=== PATIENT | female | born 1995 | race African-American/Black ===

== ENCOUNTER → 2022-09-27 | Outpatient (CLI) | payer OTHER | LOC: M RAD 15:19 | PROVIDERS: ATTEND Otolaryngology | DX: R43.0 Anosmia (principal) ==

== ENCOUNTER 2022-10-25 11:54 | Day surgery (SDC) | payer OTHER ==
[~2022-10-25] VITALS: Ht 154.9 cm; Wt 74.3 kg
[~2022-10-25 11:54] MED LIST: PEPT262C2 PO
[2022-10-25] MEDS ORDERED: fentaNYL 100 MCG/2 ML INJECTION As Ordered ONE (14:51)
[2022-10-25] MEDS ORDERED: propofoL 200 MG/20 ML VIAL As Ordered ONE (14:51)
[2022-10-25] MEDS ORDERED: MIDAZOLAM INJ 2MG/2ML VIAL As Ordered ONE (14:51)
[2022-10-25] MEDS ORDERED: ONDANSETRON 4MG 2ML VIAL As Ordered ONE (14:52)
[2022-10-25] MEDS ORDERED: ROCURONIUM BROMIDE 50MG/5ML VIAL As Ordered ONE (14:52)
[2022-10-25] MEDS ORDERED: LIDOCAINE 2% 100MG/5ML SDV (FOR ANES.) As Ordered ONE (14:52)
[2022-10-25] MEDS ORDERED: OXYMETAZOLINE 0.05% NASAL SPRAY (AFRIN) As Ordered ONE (15:50)
[2022-10-25] MEDS ORDERED: LIDOCAINE W/EPINEPHRINE 1% 20ML VIAL As Ordered ONE (15:51)
[2022-10-25] MEDS ORDERED: COCAINE 4% 4ML NASAL SOLUTION BTL As Ordered ONE (15:51)
[2022-10-25] MEDS ORDERED: ACETAMINOPHEN 1000MG 100ML IV BAG As Ordered ONE (16:17)
[2022-10-25] MEDS ORDERED: GLYCOPYRROLATE INJ 0.2 MG/ML 2 ML VIAL As Ordered ONE (16:23)
[2022-10-25] MEDS ORDERED: ESMOLOL INJ 100MG/10ML VIAL As Ordered ONE (16:23)
[2022-10-25] MEDS ORDERED: MEPERIDINE 25 MG/ML 1ML VIAL IV PRN (16:30)
[2022-10-25] MEDS ORDERED: ONDANSETRON 4MG 2ML VIAL IV PRN ×2 (16:30→19:05)
[2022-10-25] MEDS ORDERED: NORCO, ANEXSIA 5/325MG TABLET (HYDROcodone/ACETAMINOPHEN) PO PRN (16:30)
[2022-10-25] MEDS ORDERED: LR 1,000 ML IV SCH ×2 (16:30→19:00)
[2022-10-25] MEDS ORDERED: HYDROMORPHONE HCL 0.5 MG/ 0.5 ML SYRINGE IV PRN (16:30)
[2022-10-25] MEDS: fentaNYL 100 MCG/2 ML INJECTION IV PRN ×2 (17:25→17:31)
[2022-10-25 17:50] VITALS: BP 129/97
[2022-10-25] MEDS ORDERED: ANEXSIA, NORCO 7.5MG/325MG TABLET(HYDROCODONE/APAP) PO PRN (19:05)
[2022-10-25] MEDS ORDERED: OXYMETAZOLINE 0.05% NASAL SPRAY (AFRIN) PRN (19:05)
== END 2022-10-25 18:10 | disposition home or self-care (01) ==
LOC: M SDC 11:54
PROVIDERS: ATTEND Otolaryngology
DX: J34.3 Hypertrophy of nasal turbinates (principal); R09.81 Nasal congestion; R43.0 Anosmia; J30.9 Allergic rhinitis, unspecified
CPT/HCPCS: 30140; 81025; C9046; J0131; J1100; J2250; J2405; J3010